=== PATIENT | male | born 1975 | race Caucasian/White ===

== ENCOUNTER 2019-08-20 06:53 | Emergency (ER) | payer BC ==
[2019-08-20 07:16] VITALS: BP 126/94; PULSE 75
[2019-08-20] MEDS ORDERED: Acetaminophen/HYDROcodone 325-5 MG Tab PO ONE (07:30)
--- NOTE | 2019-08-20 07:32 | EDM.PDOC ---
ED HPI GENERAL MEDICAL PROBLEM - General Chief Complaint: Lower Extremity Injury/Pain Stated Complaint: LT LEG SWOLLEN Time Seen by Provider: 08/20/19 07:16 Source of Information: Reports: Patient, RN Notes Reviewed - History of Present Illness INITIAL COMMENTS - FREE TEXT/NARRATIVE: 44 yr old male comes in with L leg pain that started yesterday. No known injury. Pain just above L knee anteriorly, L medial knee at at time L post calf. Hurts more to walk. He thought his L thigh was swollen distally this AM. No chest pain or difficulty breathing. Left Leg Pain Score (Numeric/FACES): 9 - Related Data Allergies Allergy/AdvReac Type Severity Reaction Status Date / Time No Known Allergies Allergy Verified 08/20/19 07:16 Home Meds: Home Meds Lisinopril 20 mg PO DAILY 06/24/14 [History] amLODIPine Besylate [Amlodipine Besylate] 5 mg PO DAILY 06/24/14 [History] Acetaminophen/HYDROcodone [[place] 325-5 MG] 1 tab PO Q6H PRN #10 tablet 08/20/19 [Rx] Past Medical History Cardiovascular History: Reports: Hypertension Musculoskeletal History: Reports: Back Pain, Chronic, Other (See Below) Other Musculoskeletal History: receives epideral injections - Past Surgical History Neurological Surgical History: Reports: Lumbar Spine Social & Family History - Tobacco Use Smoking Status *Q: Never Smoker - Caffeine Use Caffeine Use: Reports: None - Recreational Drug Use Recreational Drug Use: No Review of Systems - Review of Systems Review Of Systems: See Below Constitutional: Denies: Chills, Diaphoresis, Fever Mouth/Throat: Reports: No Symptoms Respiratory: Denies: Shortness of Breath, Pleuritic Chest Pain Cardiovascular: Denies: Chest Pain GI/Abdominal: Denies: Abdominal Pain Musculoskeletal: Reports: Leg Pain. Denies: Joint Pain Skin: Denies: Bruising, Rash Neurological: Denies: Numbness, Tingling, Weakness ED EXAM, GENERAL - Physical Exam Exam: See Below General Appearance: Alert, Mild Distress Head: Atraumatic Neck: Supple Respiratory/Chest: No Respiratory Distress, Lungs Clear, Normal Breath Sounds Cardiovascular: Regular Rate, Rhythm Extremities: Other (Tender L ant thigh just above knee, calf nontender, no visible swelling or bruising, knee nontender) Neurological: Alert, No Motor/Sensory Deficits Skin Exam: Warm, Dry, Normal Color, No Rash. No: Erythema, Increased Warmth Course - Vital Signs Last Recorded V/S: Last Vital Signs Temp 97 F 08/20/19 07:14 Pulse 75 08/20/19 07:14 Resp 16 08/20/19 07:14 BP 126/94 H 08/20/19 07:14 Pulse Ox 97 08/20/19 07:14 - Orders/Labs/Meds Orders: Active Orders 24 hr Category Date Time Status VL Duplex Lwr Ext Veins Ltd Lt [US] Stat Exams 08/20/19 08:08 Taken Labs: Laboratory Tests 08/20/19 Range/Units 07:39 D-Dimer, Quantitative 0.64 H (0.19-0.50) mg/L Meds: Medications Discontinued Medications Generic Name Dose Route Start Last Admin Trade Name Freq PRN Reason Stop Dose Admin Hydrocodone Bitart/Acetaminophen 1 tab 08/20/19 07:30 08/20/19 07:37 [place] 325-5 Mg PO 08/20/19 07:31 1 tab ONETIME ONE Administration - Re-Assessments/Exams Free Text/Narrative Re-Assessment/Exam: 08/20/19 08:47 D Dimer came back very mildly elevated at 0.64. 08/20/19 09:11. US LLE neg for DVT. Departure - Departure Time of Disposition: 09:18 Disposition: Home, Self-Care 01 Condition: Fair Clinical Impression: Leg pain, left - Discharge Information Prescriptions: Acetaminophen/HYDROcodone [[place] 325-5 MG] 1 tab PO Q6H PRN #10 tablet PRN Reason: Pain Referrals: Kateryna Galvez PA-C [Primary Care Provider] - Forms: ED Department Discharge Additional Instructions: Rest, alternate ice and heat as needed. Advil or ibuprofen 800 mg up to 3 times daily with food, you may take tylenol in between doses for extra pain relief or hydrocodone if needed for severe pain. Follow up clinic if not much better within 3 to 5 days as expected. Return to ED if symptoms worsening in any way. Sepsis Event Note - Evaluation Sepsis Screening Result: No Definite Risk - Focused Exam Vital Signs: Vital Signs Temp Pulse Resp BP Pulse Ox 08/20/19 07:14 97 F 75 16 126/94 H 97 Date Exam was Performed: 08/20/19 Time Exam was Performed: 09:21 - My Orders Last 24 Hours: My Active Orders 08/20/19 08:08 VL Duplex Lwr Ext Veins Ltd Lt [US] Stat - Assessment/Plan Last 24 Hours: My Active Orders 08/20/19 08:08 VL Duplex Lwr Ext Veins Ltd Lt [US] Stat
--- NOTE | 2019-08-20 09:31 | US ---
Left lower extremity deep venous ultrasound: Duplex and color Doppler evaluation was obtained of the left common femoral, proximal greater saphenous, superficial femoral, popliteal, posterior tibial and peroneal veins. Right common femoral vein was also evaluated. Comparison: No prior venous imaging is available. Findings: Suboptimal phasic flow noted within the posterior tibial and peroneal veins on the left side. These vein show normal augmentation and compression. Other vein show normal phasic flow, augmentation and compression. Impression: 1. Nothing is seen to indicate deep venous thrombosis within the left lower extremity or right common femoral vein. Diagnostic code #1 This report was dictated in MDT
== END 2019-08-20 09:30 | disposition home or self-care (01) ==
LOC: JD.ED 06:53
DX: M79.652 Pain in left thigh (principal); I10 Essential (primary) hypertension; Z79.899 Other long term (current) drug therapy
CPT/HCPCS: 36415; 85379; 93971; 99284; A9270; 99283

== ENCOUNTER → 2022-01-08 | Day surgery (SDC) | payer BC ==
[~2022-01-08] MED LIST: Cefuroxime 10 MG/ML SYRINGE EYELF SCH; Lidocaine 1% PF 2 ML SDV INJECT SCH
[2022-01-08] MEDS: Polymyxin B/Trimethoprim 10 ML Bottle EYELF SCH ×3 (12:47→14:35)
[2022-01-08] MEDS: Brimonidine 0.2% Ophth Soln 5 ML Bottle EYELF SCH ×3 (12:52→14:35)
[2022-01-08] MEDS: Phenylephrine 2.5% Ophth Soln 2 ML Bot EYELF SCH ×4 (12:57→13:37)
[2022-01-08] MEDS: Tropicamide 1% Ophth Soln 15 ML Bottle EYELF SCH ×5 (13:02→14:02)
[2022-01-08] MEDS: Tetracaine HCl/PF 0.5% 4 ML Bottle EYEBOTH SCH ×4 (13:53→14:17)
[2022-01-08] MEDS: Pilocarpine 4% Ophth Soln 15 ML Bot EYELF SCH ×2 (14:08→14:35)
[2022-01-08 15:31] VITALS: BP 132/98; PULSE 66
== END ==
LOC: JD.SDS 11:47
PROVIDERS: ATTEND Ophthalmology
DX: H25.043 Posterior subcapsular polar age-related cataract, bilateral (principal); I10 Essential (primary) hypertension
CPT/HCPCS: 66984; J0697; V2788-GY

== ENCOUNTER 2022-09-01 06:46 | Day surgery (SDC) | payer BC ==
[~2022-09-01 06:46] MED LIST changes: -Cefuroxime 10 MG/ML SYRINGE EYELF SCH; +Lactated Ringers 1,000 ML IV SCH; -Lidocaine 1% PF 2 ML SDV INJECT SCH; +Lidocaine 1%/Sod Bicarbonate in NS 8.4% 1 ML Syringe IDERM PRN; +Sodium Chloride 0.9% 10 ML Syringe FLUSH PRN; +Sodium Chloride 0.9% 10 ML Syringe FLUSH SCH
[2022-09-01] MEDS ORDERED: Midazolam 1 MG/ML 2 ML SDV ONE (06:51)
[2022-09-01] MEDS ORDERED: Propofol 200 MG/20 ML SDV ONE ×2 (06:51→06:52)
[2022-09-01] MEDS ORDERED: Lidocaine 1% 2 ML ONE (06:52)
[2022-09-01] MEDS ORDERED: Ondansetron 4 MG/2 ML SDV IVPUSH PRN (07:12)
[2022-09-01 08:25] VITALS: BP 128/90; PULSE 78
== END 2022-09-01 08:25 | disposition home or self-care (01) ==
LOC: JD.SDS 06:46
PROVIDERS: ATTEND Surgery
DX: Z12.11 Encounter for screening for malignant neoplasm of colon (principal); K62.1 Rectal polyp; I10 Essential (primary) hypertension; M54.9 Dorsalgia, unspecified; G89.29 Other chronic pain; E78.2 Mixed hyperlipidemia; M19.029 Primary osteoarthritis, unspecified elbow; Z80.0 Family history of malignant neoplasm of digestive organs; Z79.899 Other long term (current) drug therapy; Z87.891 Personal history of nicotine dependence
CPT/HCPCS: 45385; J2250; J2704; J7120; 00811; J3490

== ENCOUNTER 2022-11-28 12:52 | Emergency (ER) | payer BC ==
[2022-11-28] MEDS ORDERED: Bupivacaine 0.5% 10 ML SDV INJECT ONE (13:17)
[2022-11-28 15:39] VITALS: BP 117/79; PULSE 70
== END 2022-11-28 14:30 | disposition home or self-care (01) ==
LOC: JD.ED 12:52
DX: S61.011A Laceration without foreign body of right thumb without damage to nail, initial encounter (principal); E78.00 Pure hypercholesterolemia, unspecified; I10 Essential (primary) hypertension; Z79.899 Other long term (current) drug therapy; W26.8XXA Contact with other sharp object(s), not elsewhere classified, initial encounter
CPT/HCPCS: 12001; 99282; J3490; 99283